=== PATIENT | female | born 1940 | race African-American/Black ===

== ENCOUNTER 2018-12-11 21:39 | Inpatient (IN) | payer OTHER ==
[~2018-12-11] VITALS: Ht 162.6 cm; Wt 106.1 kg
--- NOTE | ~2018-12-11 | D ---
[facility] [place] [address] DISCHARGE SUMMARY Name: MAXIM CONRAD Room #: 520B-B DIS IN M.R.#: [id number] Admission: 12/11/18 ������������������ Attend Phys: Ahsan Yang DO Discharge: 12/21/18 ������������������ Date of : 42 Report #: [id number] THIS REPORT FOR: //name// CC: Ahsan Yang Bozena Brittonflorencio DATE OF SERVICE: 12/21/2018 INPATIENT PSYCHIATRIC DISCHARGE SUMMARY ATTENDING PHYSICIAN: Ahsan Yang DO CRISIS INTERVENTION SPECIALIST AT THE TIME OF DISCHARGE: Chuck Uribe MD DISCHARGE DIAGNOSES: Major neurocognitive disorder, most likely due to Alzheimer's disease with behavioral disturbance, improved. Comorbidities include hypertension, chronic obstructive pulmonary disease, chronic respiratory failure. The patient will continue a prednisone taper. Morbid obesity, BMI of 40, obstructive sleep apnea, chronic lower extremity lymphedema, rheumatoid arthritis, on Plaquenil; history of restless legs syndrome with Requip stopped due to psychosis, paroxysmal atrial fibrillation, hyperlipidemia. LABORATORY DATA: This admission, hematology, H and H 10.3 and 32.8, white count 9.6, platelets 277. Blood gas done on 12/17/2018 was aberrant due to her being off supplemental oxygen, but she was not in increased failure. Accu-Cheks were done. Valproic acid level was 46 on 12/17/2018 and her dose was raised. Urinalysis done on 12/13/2018 and 12/17/2018 was negative. DISCHARGE MEDICATIONS: Include Seroquel 50 mg daily at 9:00 a.m., Seroquel 125 mg p.o. at 1:00 p.m., Seroquel 150 mg p.o. at bedtime for mood stabilization and psychosis, polyethylene glycol 17 g p.o. daily dissolved for constipation, prednisone currently on a taper 10 mg tablet. The patient should get 10 mg for 2 more days and then 5 mg for 2 more days and stop Lantus 32 units subQ at bedtime, aspirin 81 mg daily for cardioprotection, atorvastatin 40 mg p.o. at bedtime for hyperlipidemia, Pulmicort 0.25 mg inhaled twice a day for COPD, Depakote 500 mg p.o. b.i.d., hydroxychloroquine 400 mg p.o. daily, albuterol 3 mL inhaled q. 4 hours as needed for shortness of breath, loratadine 10 mg p.o. daily, magnesium oxide 400 mg p.o. b.i.d., Lopressor 25 mg p.o. b.i.d. for rate control, Singulair 10 mg p.o. daily for COPD, multivitamin p.o. daily for supplementation, nystatin applied to pannus and rash behind breasts for 2 more weeks and then reevaluate, pantoprazole 40 mg p.o. daily for GERD. She will need primary care and psychiatric followup at the [facility]. [address] [address] DISCHARGE SUMMARY Name: MAXIM CONRAD Room #: 520B-B DIS IN M.R.#: [id number] Admission: 12/11/18 ������������������ Attend Phys: Ahsan Yang DO Discharge: 12/21/18 ������������������ Date of : 42 Report #: [id number] REASON FOR ADMISSION: Is as follows: The patient has become increasingly agitated, accusing her of cheating in a nursing facility, she has been there about 6 months, aggressive. HOSPITAL COURSE: The patient was admitted to the Geriatric Psychiatry Unit. Her Depakote was at a subtherapeutic dose and was increased to 500 mg twice a day with a blood level of around 46. Seroquel was titrated to 50 mg in the morning, 125 in the afternoon and 150 at night. The patient initially required 1:1 while awake, this was discontinued roughly Monday this past week, was at 1:1 while awake. The patient earlier in the stay, would take her oxygen off and difficult to redirect. There were several intramuscular injections given; however, for the last 3 days or so, we had good behavioral control. At the day of discharge, the patient was not suicidal or homicidal, ready for discharge back to nursing facility. PHYSICAL EXAMINATION: VITAL SIGNS: Temperature is 36.3, pulse 75, respirations 14, BP 86/49, O2 sat 99% by nasal cannula, essentially nonambulatory, using a wheelchair. MENTAL STATUS EXAMINATION: This is a well-developed, well-nourished, obese black female, appearing nearly stated age. Attention limited. Concentration limited. Speech, normal rate. Thought process linear and goal oriented. Thought content, focused on discharge. No psychomotor agitation. No psychomotor retardation. No auditory, visual or tactile hallucinations. Denies suicidal intent or plan. Denied hopelessness or helplessness. Denied homicidal intent or plan. Mood and affect were happy, congruent, euthymic, particularly about discharge. Insight limited. Judgment limited. Fund of knowledge below average. Prognosis for this patient is guarded to poor given dementia, oxygen requirements, advancing age and poor conditioning. ��������������������������������������������� ���������������������������������������� By: ��������������������������������������������� [id number] Ahsan Yang, DO /nt
[2018-12-11 21:48] VITALS: BP 124/102
[2018-12-11] MEDS ORDERED: APAP650 PO (21:59)
[2018-12-11] MEDS ORDERED: AMITRIPTYLINE H25 M2 PO (22:00)
[2018-12-11] MEDS ORDERED: DEPAKOTE500 MG PO (22:01)
[2018-12-11] MEDS ORDERED: ASPIRIN81 M2 PO (22:01)
[2018-12-11] MEDS ORDERED: PULMICORT0.25 MG/3 INH (22:01)
[2018-12-11] MEDS ORDERED: ATORVASTATIN CA40 MG PO (22:01)
[2018-12-11] MEDS ORDERED: CARDIZEM CD240 MG PO (22:02)
[2018-12-11] MEDS ORDERED: HYDROCHLOROTHIA25 M2 PO (22:02)
[2018-12-11] MEDS ORDERED: IPRAT-ALBUT 0.5-3 ML INH (22:03)
[2018-12-11] MEDS ORDERED: PLAQUENIL200 MG PO (22:03)
[2018-12-11] MEDS ORDERED: CLARITIN10 MG PO (22:04)
[2018-12-11] MEDS ORDERED: LOPRESSOR25 PO (22:04)
[2018-12-11] MEDS ORDERED: MAGOX 400400 MG PO (22:04)
[2018-12-11] MEDS ORDERED: SINGULAIR 10 MG10 M1 PO (22:05)
[2018-12-11] MEDS ORDERED: NOVOLOG100 UNIT/1 SUBQ (22:05)
[2018-12-11] MEDS ORDERED: CENTRUM SILVER1 EAC4 PO (22:05)
[2018-12-11] MEDS ORDERED: NYAMYC15 GM TOP (22:06)
[2018-12-11] MEDS ORDERED: PROTONIX40 M1 PO (22:06)
[2018-12-11] MEDS ORDERED: REQUIP 0.25 M0.25 M1 PO (22:07)
[2018-12-11] MEDS ORDERED: TRESIBA FL200 UNIT/1 SUBQ (22:07)
[2018-12-11] MEDS ORDERED: SEROQUEL 50 MG50 MG PO (22:07)
[2018-12-11 23:36] VITALS: BP 130/83
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
--- NOTE | 2018-12-12 01:39 | NUR ---
Pt takes Tresiba at hs. Our pharmacy does not carry this medication. Will have day charge notify Dr in am of need to change medication to lantus and pt will need a dose.
--- NOTE | 2018-12-12 01:51 | NUR ---
Notified Deirdre DANIELS of admission and that pharmacy does not carry Trebsia insulin, that it would need to be changed to Lantus. YOUTH MINISTER agreed that day charge can notify DR in am and of need for dose.
--- NOTE | 2018-12-12 02:08 | NUR ---
Pt awakened noted to have gutteral breathing noises, using accessory muscles with breathing. O2 remains on. Pt wanting to remain in upright position. RT called for breathing treatment.
--- NOTE | 2018-12-12 02:12 | NUR ---
RT stated pt needs prn order, candy wrapping machine operator called for order prn nebulizer.
--- NOTE | 2018-12-12 02:13 | NUR ---
Lung sounds expiratory wheeze anterior and posterior, RT notified.
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
--- NOTE | 2018-12-12 04:25 | NUR ---
Pt restless in bed prefers to lay on right side or sit upright, pt c/o legs itching and lotion applied. Pt had HOB raised to 90 with pillows supporting her back and she relaxed to rest. O2 remained continuous and no increase in wheezing or use of accessory muscles noted.
--- NOTE | 2018-12-12 05:10 | NUR ---
Pt became restless in bed, sitting on edge of bed. Pt assisted to w/c and o2 per tank, Pt now sitting upright but sleeping in chair in day room. Compliant with cares and transfer. No mention of hallucinations.
[2018-12-12 15:53] VITALS: BP 109/55
[2018-12-12 18:01] VITALS: BP 109/55
--- NOTE | 2018-12-12 18:43 | NUR ---
ASSUMED PATIENT CARE AT 0700. PATIENT WAS COMPLIANT WITH NURSING CARE THROUGHOUT THE DAY. HOWEVER, PATIENT BECAME COMBATIVE AT ABOUT 1600, WHEN NURSE ATTEMPTED TO REMOVE HOSPITAL OXYGEN TANK FROM PATIENT, WHICH SHE HAD MOVED FROM BEHIND TO HER TO IN FRONT OF HER. PATIENT INSISTED THAT IT WAS HERS, REFUSED TO ALLOW NURSE TO REMOVE FROM HER FRUIT FARMWORKER. NURSE WAS ABLE TO DISCONNEDT O2 TUBING FROM TANK, IN AN EFFORT TO MOVE THE TANK. HOWEVER, PATIENT BECAME VERY ANGRY, NECESSARY FOR ASSIST TIMES 3-4 TO GET PATIENT SAT DOWN IN CHAIR.
[2018-12-12 20:23] VITALS: BP 115/65
--- NOTE | 2018-12-12 20:39 | NUR ---
ASSUMED CARE @ 19:15. IN ROOM, WITH OXYGEN ON @ 3L. SHOUTING AND SAYING SHE WANTS TO GO HOME.
--- NOTE | 2018-12-12 22:16 | NUR ---
TAKES OXYGEN OF AND WALKS OUT OF HER ROOM FREQUENTLY. SATS DROP TO 84% WHEN OFF OXYGEN. COOPERATED WITH RESPIRATORY THERAPY, AND RECIEVED RESPIRATORY TX. TOOK 2100 MEDS WHOLE WITH WATER. C/O WANTING TO GO HOME. EXPLAINATION PROVIDED THAT SHE HAS A BED FOR TONIGHT AND CAN TALK TO THE DOCTOR ABOUT THAT TOMORROW. SEEMED TO ACCEPT INPATIENT STATUS. WILL CONTINUE TO MONITOR.
[2018-12-12 22:22] VITALS: BP 115/65
--- NOTE | 2018-12-13 02:47 | NUR ---
AWAKENED IN THE NOC AND SAT UP ON SIDE OF BED. BEGAN FALLING ASLEEP WHILE SITTING AND TRIED TO HELP HER LIE DOWN. SHE RESISTED THE HELP, AND SOON LAID HERSELF BACK DOWN. WILL CONTINUE TO MONITOR.
--- NOTE | 2018-12-13 06:38 | NUR ---
AWAKENED WITH PAIN IN HER BACK. PROVIDED PRN ARTHRITIS TYLENOL. 0600 AND 0700 MEDS PROVIDED. STILL NEED TO COLLECT URINE FOR UA.
[2018-12-13 07:20] VITALS: BP 106/58
[2018-12-13 07:29] LABS: URINE BILIRUBIN NEGATIVE (Negative); URINE BLOOD NEGATIVE (Negative); URINE CLARITY CLEAR; URINE COLOR YELLOW; URINE GLUCOSE-RANDOM* NEGATIVE (Negative); URINE KETONES NEGATIVE (Negative); URINE LEUKOCYTES-REFLEX NEGATIVE (Negative); URINE NITRITE-REFLEX NEGATIVE (Negative); URINE PROTEIN (DIPSTICK) NEGATIVE (Negative); URINE SPECIFIC GRAVITY 1.015 (1.005-1.035)
--- NOTE | 2018-12-13 09:28 | EKG ---
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1940 Requested By: Charan Bowens Order Number: [id number] MD: Abelardo Lamar Measurements Intervals [place] Rate: 94 P: 246 [place]: 177 QRS: 9 QRSD: 91 T: 52 QT: 376 QTc: 471 Interpretive Statements Sinus rhythm with first-degree AV block No previous ECG available for comparison Electronically Signed On 12-13-2018 9:28:28 CDT by Abelardo Lamar [email or web address] ��������������������������������������������� <ELECTRONICALLY SIGNED> ���������������������������������������� By: Abelardo Lamar MD, [facility] ��������������������������������������������� 12/13/18 0928 D: [id number] Abelardo Lamar MD, FACC /EPI
[2018-12-13 11:06] VITALS: BP 106/58
--- NOTE | 2018-12-13 12:57 | NUR ---
PATIENT IS UP AND OUT ON THE UNIT, SHE IS FORGETFUL, CONFUSED AT TIMES, CAN CARRY OUT COHERENT CONVERSATION INTERMITTENTLY. PATIENT CONTINUE TO HAVE VISUAL HALLUCINATION. STATES TO THIS RN, "I SEE THINGS FLYING ON MY FOOD DO YOU SEE THEM?". THIS NURSE ASSURED PATIENT THAT NOTHING IS FLYING ON HER FOOD, " OH AM SEEING THINGS AGAIN". PATIENT WAS REASSURED, AND TOLD TO LET STAFF KNOW ABOUT WHATEVERY SHE IS SEEING. PATIENT TOOK ALL HER MEDICATION WHOLE WITHOUT DIFFICULTY. PATIENT ATTEMPTS TO TAKE 02 TUBING OFF. SHE PRESENTS WITH RESTLESS BEHAVIOR INTERMITTENTLY. STAFF ENCOURAGING AND MONITORING PATIENT TO KEEP [address] TO AVOID 02 FROM DROPPING. PATIENT DENIES SUICIDAL/HOMOCIDAL IDEATION. SHE DENIES BEING DEPRESSED "I JUST WANT TO GO HOME AND SEE MY KIDS, WE HAVEN'T BEEN SEPERATED SINCE THEY WERE BORN". PATIENT CURRENTLY SITTING IN DAY ROOM WATCHING TV, WILL MONITOR FOR SAFETY.
--- NOTE | 2018-12-13 14:34 | NUR ---
VICTORINA spoke with pt's spouse Hill Coats [phone]. He wishes to be part of the d/c planning. Pt lives in the [facility] in [place] for only 1 week. Pt has her own O2 and wheelchair. he will bring these back for her when he picks her up at d/c. He is working a lot and unable to be present for the family meeting but is able to provide inforamtion and possibly contribute via phone if necessary.
[2018-12-13 20:44] VITALS: BP 108/60
--- NOTE | 2018-12-13 21:37 | H ---
[facility] [place] [address] HISTORY AND PHYSICAL Name: MAXIM OCNRAD Room #: 520B-B ADM IN M.R.#: [id number] Admission: 12/11/18 ������������������ Attend Phys: Ahsan Yang DO Discharge: ������������������ Date of : 42 Report #: [id number] THIS REPORT FOR: //name// CC: Ahsan Yang Bozena Tejada DATE OF SERVICE: 12/12/2018 ATTENDING PHYSICIAN: Ahsan Yang DO MANAGER DELI: Nils Samayoa MD REASON FOR ADMISSION: As follows: Yelling, hitting at , refusal of care, is not willing to stay at facility. HISTORY OF PRESENT ILLNESS: A 78-year-old obese black female presented to the ED with complaints of shortness of air, reports ongoing and chronic, she normally wears oxygen. The patient was at a SNF facility with auditory and visual hallucinations. This was [place] in the [facility]. This has been going on about 3 weeks for pneumonia and medication change. The patient progressively increased agitation and violence. Had CT and blood work this a.m. The patient stated in the ER "my does not want me drinking, but I have been drinking for 20 some years." She denied alcohol use. She reports SI for about 2 weeks, stated "I have nothing to live for." She reports trying to harm herself in the past. She also confirms having thoughts of harming someone else, stating yes "my is the one." This woman's name is Camille and the patient denies ever trying to harm Camille in the past. The patient had previously lived at home with her children and brother in [place], [place]. Today, I spoke to her son, Albert, who reported she had been placed in a nursing facility for 4-5 months. She has accused her of cheating. She is on her fourth marriage. Respiratory symptoms are chronic and according to the son, she has not been diagnosed with dementia, but the ER, noted an Alzheimer's diagnosis. PAST MEDICAL HISTORY: Bronchitis, chest pain, COPD, diabetes mellitus, dizziness, fibromyalgia, history of GI bleed, hypercholesterolemia, hypertension, hyperglycemia, hypomagnesemia, lung disease, malignant neoplasm of the bronchus and lung, obesity, obstructive sleep apnea, pleurisy, history of pneumonia, history of respiratory failure, history of sepsis, shortness of breath, weakness, cervical disk removal. PAST SURGICAL HISTORY: Cholecystectomy, hysterectomy, lobectomy of lung. MEDICATIONS: At nursing facility are as follows: Acetaminophen 650 mg p.o. q. 4 hours p.r.n. for general discomfort; amitriptyline 50 mg p.o. by mouth at bedtime for depression; aspirin 81 mg p.o. daily for cardioprotection; atorvastatin 40 mg p.o. at bedtime for hyperlipidemia; ____ suspension 0.[address] [address] HISTORY AND PHYSICAL Name: MAXIM CONRAD Room #: 520B-B ADM IN M.R.#: [id number] Admission: 12/11/18 ������������������ Attend Phys: Ahsan Yang DO Discharge: ������������������ Date of : 42 Report #: [id number] per 2 mL 1 vial inhale orally twice daily for COPD; Depakote 500 mg by mouth 2 times per day for behaviors; diltiazem hydrochloride 120 mg 2 tablets by mouth in the morning for hypertension, hold if systolic BP less than 100 or pulse is less than 50; hydrochlorothiazide 25 mg oral daily; hydroxychloroquine 200 mg by mouth one time a day for arthritis; albuterol with ipratropium bromide nebulizer 0.5 mg inhaled every 4 hours for COPD; loratadine 10 mg p.o. daily for allergies; magnesium oxide 1 tablet by mouth 2 times a day for supplementation; metoprolol tartrate 25 mg by mouth 2 times a day for hypertension. DEVELOPMENTAL HISTORY: She only has a 6th grade level of education. She has numerous children, 4 marriages at least. Unclear exactly her occupational history at this time. Information from the ER in [place] showed a CT of the head without contrast. There was no mass effect, midline shift, extra-axial fluid collection, hemorrhage or obvious acute infarction. Basilar cisterns are present. No acute intracranial abnormality. LABORATORY DATA: From [place]: PTT 29.2, PT 12.6, INR 1.2. CBC: White count 12.2, H and H 9.6 and 32.4, platelet count 295. CMP: Glucose 116, BUN 13, creatinine 0.7, sodium 140, potassium 3.6, chloride 99, bicarbonate 34, SGOT 23, SGPT 25, alkaline phosphatase 120, albumin 3.6, calcium 9.8, estimated GFR greater than 60, magnesium 1.7. Troponin less than 0.012. TSH 2.98. Dilantin level less than 3. Vitamin B12 645, folate greater than 20. I am not sure why the Dilantin level was tested for. PHYSICAL EXAMINATION: VITAL SIGNS AT TIME OF EVALUATION: Temperature is 36.8, pulse rate 95, respirations 18, BP 109/55, O2 sat 92% on room air. MUSCULOSKELETAL: Largely wheelchair bound, on oxygen at 3 liters. MENTAL STATUS: This is a well-developed, obese black female appeared at least stated age. Attention limited. Concentration limited. Speech loud, normal rate. Thought process linear, focused to her present environment. Psychomotor agitation at times. No psychomotor retardation. Denied auditory, visual or tactile hallucination. Denied suicidal intent or plan. Denied hopelessness or helplessness. Denied homicidal intent or plan. Oriented to person, grossly situation not fully to time. Insight limited. Judgment limited. Fund of knowledge below average. FORMULATION: A 78-year-old obese black female admitted for a variety of impulsive behavior as well as hallucinations. PLAN: Evaluate, stabilize, obtain collateral. I spoke with the son, Albert regarding her medications. Since her Depakote level was subtherapeutic, we will keep that at 500 mg twice a day. Regarding psychosis, I think we will try and work with the Seroquel a bit since she is on that and make her through the day [address] [address] HISTORY AND PHYSICAL Name: MAXIM CONRAD Room #: 520B-B ADM IN M.R.#: [id number] Admission: 12/11/18 ������������������ Attend Phys: Ahsan Yang DO Discharge: ������������������ Date of : 42 Report #: [id number] regimen of 25 in the morning and 50 in the afternoon, 75 in the evening. Given her COPD, we will make this a gradual increase. I would like to set up a family meeting for later in the week or early next week. STRENGTHS: She has insured. WEAKNESSES: Advancing age, morbid obesity with a BMI of 40.2. Time spent on interview, review of records, coordination of care, as well as assisting nurses in management of her agitation and need for removal from the group area was at least 90 minutes. ��������������������������������������������� <ELECTRONICALLY SIGNED> ���������������������������������������� By: Ahsan Yang DO ��������������������������������������������� 12/13/182136 47 17 Ahsan Yang DO /nt
--- NOTE | 2018-12-13 23:32 | NUR ---
PT PLEASANT AT START OF EVENING. O2 AT 2L PER NASAL CANNULA. TOOK HS MEDS AND INSULIN ORDERED. ESCORTED TO BED AT 2130. BECAME INCREASINGLY RESTLESS AND CONFUSED. AUDITORY HALLUCINATIONS, BELIEVING MALE STAFF WAS SON CONG. GOT CONG ON PHONE AND SHE REFUSED TO BELIEVE IT WAS HIM. SAT UP IN DAYROOM FOR 30 MINUTES ON O2, THEN DECIDED SHE WAS NOW READY FOR BED. TUCKED IN WITH O2 AT 2L. CURRENTLY SLEEPING.
[2018-12-14 01:18] VITALS: BP 108/60
[2018-12-14 01:21] VITALS: BP 108/60
--- NOTE | 2018-12-14 04:47 | NUR ---
PT CONTINUED TO BE RESTLESS. PT UP IN DAY AREA AT 0230 FOR ABOUT AN HOUR. RETURNED TO BED. SLEPT UNTIL 0415. UP TO BSC. VOIDED APPROX 800 ML. RETURNED TO BED. CURRENTLY RESTING COMFORTABLY. CHECKED O2 SAT DURING RESTLESS PERIOD. SAT 96-98%.
[2018-12-14 07:15] VITALS: BP 88/44
--- NOTE | 2018-12-14 08:38 | NUR ---
Assess due to pt with class III extreme obesity with BMI of 40.2. Admit to [facility] with hallucinations. Hx dementia, copd, dm. Eating 75-100% of a carb controlled diet. BG are elevated 162-282, requires HS insulin but may also need sliding scale coverage. ST has assessed and placed on mechanical altered diet due to retained food, and episode of choking. Otherwise low nutrition risk, attempt for improved BG control.
[2018-12-14 10:26] LABS: HEMATOCRIT 32.8 % (37.0-47.0); HEMOGLOBIN 10.3 gm/dL (12.0-15.0); MCH 25.5 pg (26.0-34.0); MCHC 31.3 g/dL (28.0-37.0); MCV 81.6 fL (80.0-100.0); RBC 4.02 mil/uL (4.20-5.00); RDW 16.5 % (10.5-14.5); WBC 8.6 thou/uL (4.0-11.0)
[2018-12-14 10:37] LABS: CALCIUM 9.6 mg/dL (8.5-10.1); CREATININE 0.7 mg/dL (0.6-1.0); MAGNESIUM 1.6 mg/dL (1.8-2.4); POTASSIUM 3.6 mmol/L (3.5-5.1); TOTAL BILIRUBIN 0.3 mg/dL (<0.1-1.0); TOTAL PROTEIN 7.2 g/dL (6.4-8.2)
--- NOTE | 2018-12-14 15:05 | NUR ---
RESTLESS AND CONFUSED APPEARS TO BE HAVING AUDITORY AND VISUAL HALLUCINATIONS. APPEARS TO BE EATING WITH UTENSILS BUT NO FOOD OR UTENSILS THERE. POOR APPETITE. ANGRY WHEN TRY TO FEED HER. UP TO DINNING ROOM AND GROUPS. FALLS ASLEEP IN W/C. VOIDS IN TOILET WEARS BRIEF FOR ASSURANCE. TOOK MEDICATIONS WITHOUT DIFFICULTY.
--- NOTE | 2018-12-14 15:54 | NUR ---
SW completed SLUMS. PT scored a 3/30. Pt will be Major Neurocongitive disorder.
--- NOTE | 2018-12-14 23:11 | NUR ---
ASSUMED CARE @ 19:15. SITTING IN W/C IN DAY ROOM WITH OXYGEN ON @ 3L NC. REFUSED VS HRRR LUNGS SOUNDS DIMINISHED, ABD NORMAL BS. REPORTS LARGE BM YESTERDAY. TOOK HER 2100 MEDS COOPERATIVELY. X2 ASSIST TO TRANSFER TO BED. WILL CONTINUE TO MONITOR.
[2018-12-14 23:39] VITALS: BP 108/60
--- NOTE | 2018-12-15 03:14 | NUR ---
AWAKENS PERIODICALLY AND SITS UP THEN ALLOWS US TO LAY HER DOWN AND RAISE THE HEAD OF HER BED. RESPIRATORY THERAPY PROVIDED BTX. WILL CONTINUE TO MONITOR.
[2018-12-15 07:30] VITALS: BP 101/57
--- NOTE | 2018-12-15 07:45 | NUR ---
PT URINATED ON BED. PT GETTING DRESSED WITH ASSIST WITH SENIOR ARCHITECT/DESIGN MANAGER, PT ABLE TO STAND AND WALK. PT POLISH SPEAKING ONLY. PT DENIES ANY PAIN, DOES HAVE ORDER OF LIDOCAINE PATCH FOR BACK. PT HAS 1:1 FOR BEHAVIOR ISSUES AND TO PREVENT FALLS.
--- NOTE | 2018-12-15 09:30 | NUR ---
PT UP IN DINNING ROOM. PT HAS OXYGEN ON 3L NC. PT VOICE IS HARD TO UNDERSTAND AT TIMES DUE TO MUMBLING. PT STATED SHE HAS BEEN WEARING OXYGEN FOR 9 YEARS NOW. PT LUNGS CLEAR. NO SIGNS OF EDEMA.
--- NOTE | 2018-12-15 11:30 | NUR ---
FAMILY HERE TO SEE PT. PT WANTING TO GET UP OUT OF W/C WHEN FAMILY WAS LEAVING. PT EASY TO REDIRECT.
--- NOTE | 2018-12-15 13:30 | NUR ---
PT WAS WANTING TO KNOW ABOUT HER CELL PHONE AND PURSES. CALLED AND TALKED TO SON, PARVIN ON THE PHONE. SON STATED THAT HER MOM SPEECH IS HARD TO UNDERSTAND. WANTING TO KNOW ABOUT HER MEDICATIONS. WILL ADVISE OF SON CONSCERNS.
--- NOTE | 2018-12-15 14:00 | NUR ---
SITTING NEXT TO PT, SHE IS PUTTING SOMETHING ON MY COMPUTER TRAY. ASKED HER WHAT SHE IS PUTTING ON TRY, STATED THAT IT WAS HER EARINGS. NO EARINGS SEEN.
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
--- NOTE | 2018-12-15 17:30 | NUR ---
LAYED PT DOWN FOR NAP, SEEMS SLEEPY WITH EYES CLOSED IN W/C. GOT TO TALK TO ON PHONE AROUND 16:30, THEN OUT TO DINNING ROOM. PT DIDN'T WANT TO EAT DINNER.
--- NOTE | 2018-12-16 00:22 | NUR ---
ASSUMED CARE @ 19:15. IN W.C. WITH OXYGEN ON VIA N/C @ 3 L IN DAY ROOM. TOOK 2100 MEDS AND TRANSFERRED TO THE BED X2 ASSIST. BTX PROVIDED @ 20:30. AWAKENED AT 00:30, COMBATITIVE WITH STAFF, WRAPPING OXYGEN CORD AROUND HAND.
--- NOTE | 2018-12-16 01:27 | NUR ---
NEW OXYGEN TUBING HOOKED UP AND N/C PUT ON PATIENTS NOSE. OXYGEN SATS INCREASED TO 93%, ORDER FOR IM HALPERODOL 2.5MG AND 25MG BENEDRIL PROVIDED. PT ALLOWED HERSELF TO TRANSFER TO THE BED X2 ASSIST. GOT AN L SHAPED SCRATCH ON THE RIGHT ANKLE FROM KICKING THE BED DURING PSYCHOTIC RAGE. WILL CONTINUE TO MONITOR.
--- NOTE | 2018-12-16 04:47 | NUR ---
GOT OUT OF BED AND AMBULATED X1 ASSIST TO THE DAY ROOM. RETURNED TO HER ROOM X1 ASSIST, TOILETED AND AMBULATED X1 TO THE DAY ROOM. PUT OXYGEN ON AND HER SPO2 SATS CAME UP TO 93%. WILL CONTINUE TO MONITOR.
[2018-12-16 04:52] VITALS: BP 101/57
--- NOTE | 2018-12-16 06:18 | NUR ---
slept 3 hours
--- NOTE | 2018-12-16 09:02 | NUR ---
0730: Report from noc shift, care assumed. To for a.m. meal via w/c, self propels occasionally, feeds self-appetite good, takes meds whole w/o difficulty. O2 on @ 3L, O2SAT 96%, lung fileds dim bilat. continues with SVN tx as ordered, no cough noted. Chair alarm in place, pt requires frequent reminders to no impulsively attempt to stand up from w/c, accepts redirection well. Fall precautions in place.
[2018-12-16 10:14] VITALS: BP 115/62
[2018-12-16 19:30] VITALS: BP 116/66
--- NOTE | 2018-12-16 21:39 | NUR ---
PT IN ROOM SITTING ON EDGE OF BED ON 1:1 OBSERVATION. ACTIVELY HALLUCINATING. BELIEVES HER SON IS HERE,"I CAN HEAR HIM". NEEDED ENCOURAGEMENT AND PATIENCE, BUT PT TOOK PO MEDS AT PRESCRIBED. REMAINS SITTING ON BED BUT REDIRECTABLE AND SOMEWHAT QUIETER. SMILES PERIODICALLY, BUT CONFUSED.
[2018-12-16 23:54] VITALS: BP 116/66
--- NOTE | 2018-12-17 03:28 | NUR ---
PT SLEPT PERIODICALLY. SAT UP AND RESPIRATIONS WERE COARSE. RT UP TO ADMINISTER TREATMENT. PT COOPERATIVE. ABOUT 0330, PT DECIDED SHE DID NOT WANT TO KEEP O2 ON. ATTEMPTED TO CONVINCE HER THE O2 WAS MEDICINE AND NECESSARY FOR HER WELL BEING. SHE WAS HAVING NONE OF THAT. REFUSING AT THIS TO COMPLY. CONTINUES TO SIT ON EDGE OF BED ON 1:1 OBSERVATION.
[2018-12-17 09:36] VITALS: BP 124/73
--- NOTE | 2018-12-17 09:44 | NUR ---
2926-1834: Report from [facility] shift, care assumed. Sleeping in w/c in DR, resp. shallow/even, O2 on @ 3L/NC, lung ruiz diminished to bilat. upper and lower lobes, O2SAT on O2 92%, skin w/d, awakens with sternal rub, agitated when awake, uncooperative with staff, refused a.m. meal and 0900 meds, B/P=124/73, HR 92. Pt stated she needed to use bathroom but declines staff assist, impulsive movements and ideations, slaps at staff with open hand, pt physically removed from DR via w/c, taken to room and assisted to bed accomp by 4 staff due to pt resistance, refused to cooperate with staff, trying to get out of bed w/o assist. Dr. Yang present, update given, new orders rec. 0930: Geodon 10mg IM given Lt upper buttock, assisted by 2 staff. 0950: Stat lab draw completed. Pt resting supine in bed w/o distress, 1:1 sitter present.
[2018-12-17 11:48] LABS: BE(vivo) 10.2 mmol/L (-2 to +3); HCO3 34.9 mmol/L (22.0-26.0); PCO2 47.6 mmHg (35.0-45.0); pH 7.483 (7.360-7.450)
[2018-12-17 11:50] LABS: PO2 45.3 mmHg (80.0-100.0)
--- NOTE | 2018-12-17 14:07 | EKG ---
[place] [address] [facility] [employer] [address] ELECTROCARDIOGRAM REPORT Name: MAXIM CONRAD Room #: [facility] ADM IN M.R.#: [id number] ������������������ Admission: 12/11/18 ������������������ Attend Phys: Ahsan Yang DO Discharge: ������������������ Date of : 42 Report #: [id number] ����������������������������������������������������������������� [id number] THIS REPORT FOR: //name// [facility] Test Date: 2018-12-17 Test Time: 11:30:50 Pat Name: MAXIM CONRAD Department: Room: [facility] Gender: F 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: Vinnie WISE : 1940 Requested By: Chuck Uribe Order Number: [id number] MD: Davin Argueta Measurements Intervals [place] Rate: 101 P: -31 MN: 215 QRS: 10 QRSD: 93 T: 89 QT: 355 QTc: 461 Interpretive Statements Sinus tachycardia Prolonged MN interval Borderline T wave abnormalities Compared to ECG 12/11/2018 21:56:32 First degree AV block now present T-wave abnormality now present Sinus rhythm no longer present Electronically Signed On 12-17-2018 14:07:14 CDT by Davin Argueta [email or web address] ��������������������������������������������� <ELECTRONICALLY SIGNED> ���������������������������������������� By: Davin Argueta MD ��������������������������������������������� 12/17/18 1407 1130 1130 Davin Argueta MD /EPI
--- NOTE | 2018-12-17 17:33 | NUR ---
1730: Clean catch UA specimen collected and taken to lab.
[2018-12-17 18:16] LABS: URINE BILIRUBIN NEGATIVE (Negative); URINE BLOOD NEGATIVE (Negative); URINE CLARITY CLEAR; URINE COLOR YELLOW; URINE GLUCOSE-RANDOM* NEGATIVE (Negative); URINE KETONES NEGATIVE (Negative); URINE LEUKOCYTES-REFLEX NEGATIVE (Negative); URINE NITRITE-REFLEX NEGATIVE (Negative); URINE PROTEIN (DIPSTICK) NEGATIVE (Negative)
[2018-12-17 19:31] VITALS: BP 119/70
--- NOTE | 2018-12-18 03:28 | NUR ---
ASSUMED CARE FROM DAY SHIFT PT SITTING UP IN WHEELCHAIR WITH 1:1 SITTER AT SIDE PT CALM COOPERATIVE ALERT ORIENTED X4 TOOK PO MEDICATION WITH DIFF. ASSISSTED TO BED AFTER BATHRROM BREAK, SLEEPING WELL THROUGHOUT ROUNDING. WILL CONINTUE WITH CURRENT PLAN OF CARE.
[2018-12-18 07:10] VITALS: BP 124/77
[2018-12-18 10:53] VITALS: BP 124/77
--- NOTE | 2018-12-18 11:14 | NUR ---
ASSUMED CARE AT 0715 THIS MORNING. PT. IN BED, GOTTEN UP FOR VS AND BREAKFAST. COMPLIANT WITH A.M. MEDICATIONS AND A.M. GROUP. IN ROOM WITH 1:1 SHE DECIDED TO BE OBSTINATE AND REFUSED TO SIT DOWN, STANDING IN THE CORNER BY HER BED. STAFF CLOSE INCASE OF PROBLEMS, GAIT BELT ON PT. PT. SOON TIRED OF STANDING AND SAT IN HER W/C. RT HERE FOR TREATMENTS. HAD 2 VISITORS AT 1045 THIS MORNING. REFUSED BATH OR SHOWER.
--- NOTE | 2018-12-18 13:14 | NUR ---
Recreational Therapy Weekly Progress Note Date of Admission: 12/11/18 Date of Activity Therapy Assessment: 12/14/18 Activity Goal: 1 group per day. Initial Goal: Patient will participate in 1 recreational therapy group per day until discharge. Weekly progress towards goal: Did not achieve goals Group participation level: Needs some assistance Behaviors observed: Patient's participation in groups has been inconsistent. Pt shows signs of hallucinating during group as evidence by picking up unseen objects of floor, reaching for the air, and passing these objects to other pts. Pt is blunt and verbally aggressive at times and drowsy during others. Plan: No change towards goal
[2018-12-18 20:46] VITALS: BP 123/69
--- NOTE | 2018-12-18 21:57 | NUR ---
ASSUMED CARE OF THE PT AT 1915PM. THE PT WAS IN THE DINNING ROOM IN HER WHEELCHAIR, SHE KEPT PULLING HER OXYGEN TUBING FROM THE WALL. DENIES PAIN AT THIS TIME. REMAINS ON 12 MINUTE CHECKS FOR HER SAFETY.
--- NOTE | 2018-12-18 22:42 | NUR ---
THE PT CAME OUT OF HER ROOM RUNNING DOWN THE HALLWAY NAKED WITHOUT HER OXYGEN. ASSISTED THE PT BACK TO BED WITH THE ASSISTANCE OF TWO PEOPLE. MEDICATED THE PT WITH LORAZEPAM 0.5MG PO. REMAINS ON 12 MINUTE CHECKS FOR THE PT'S SAFETY.
--- NOTE | 2018-12-19 02:26 | NUR ---
THE PT WAS SITTING ON THE SIDE OF THE BED, THEN SHE ABRUPTLY GOT UP TO WALK TO THE BATHROOM. ASSISTED HER BACK TO BED AFTER SHE VOIDED. CURRENTLY SHE IS SITTING ON THE SIDE OF THE BED WITH THE BED ALARM IN PLACE.
--- NOTE | 2018-12-19 03:55 | NUR ---
THE PT HAS BEEN UP AND DOWN FROM THE BED. THREATENING STAFF. WON'T LEAVE HER OXYGEN IN PLACE, WILL NOT GET BACK UP IN THE BED. CONTINUALLY GETTING UP AND WALKING AROUND THE ROOM, WITH AN UNSTEADY GAIT. YELLING AT STAFF, "YOU DON'T TOUCH ME!!!" CALLED THE CORK FLOOR INSTALLER WINDOWS ADMINISTRATOR, WHO ORDERED ZYPREXA 5 MG IM, WHICH WAS GIVEN ORDERED. STAFF IS SITTING WITH PT AT THIS TIME, SHE WILL NOT GO BACK TO BED.
--- NOTE | 2018-12-19 06:41 | NUR ---
THE PT SLEPT 5 HOURS LAST NIGHT.
[2018-12-19 07:52] VITALS: BP 110/68
--- NOTE | 2018-12-19 08:30 | NUR ---
PT OUT EATING BREAKFAST THIS AM. PT ORIENTED TO SELF ONLY. PT THOUGHT SHE WAS IN [facility] AND THAT IT WAS NOVEMBER. PT HAS RLL RHONCHI AND WHEEZE. LLL EXP RHONCHI. PT HAS OXYGEN ON 3L NC. PT SOA WITH EXERTION. PT IN W/C. PT CAN WALK WITH STAND-BY ASSISTANCE.
[2018-12-19 10:00] VITALS: BP 110/68
--- NOTE | 2018-12-19 11:58 | NUR ---
FAMILY CAME TO VISIT. PT HAD GOOD VIST WITH FAMILY.
--- NOTE | 2018-12-19 14:57 | NUR ---
VICTORINA spoke with Alison at [facility] concerning pt discharge. VICTORINA explained that pt tamara be discharge on december 21, 2018. VICTORINA explained that she recieved a phone call from pt daughter that she would not be accepted back to . VICTORINA explained that according [place] and [place] the state requires a 30 day notice.
--- NOTE | 2018-12-19 15:46 | NUR ---
PT FIGITING IN W/C. PT THOUGHT SHE DROPPED A BANANA, NO BANANA SEEN ON FLOOR.
--- NOTE | 2018-12-19 17:40 | NUR ---
PT RESTING IN CHAIR IN DINNING ROOM. PT AWOKE AND TRYING TO GET UP OUT OF CHAIR. PT HEARING ALARM IN CHAIR AND THOUGHT PARVIN WAS AT FRONT DOOR AND WANTED SOMEONE TO CHECK. WALKED WITH PATIENT DOWN CHAIREZ, DIDN'T SEE PARVIN. CALLED ON PHONE TO TALKE TO PARVIN, LEFT MESSAGE ON HIS PHONE.
[2018-12-19 19:10] VITALS: BP 127/70
--- NOTE | 2018-12-19 20:51 | NUR ---
Pt sitting in w/c in day room, restless sitting up and down, taking oxygen off and on. Pt picking at objects that only she can see. Pt talking to children that are not there. Pt discussing with staff about dogs barking and laughing that are not there. Pt compliant with medications, fsbs, and hs snack. Lungs remain diminished. Pts daughter called and talked with pt. Pt told her daughter that she planned on getting out of here tomorrow and would see her tomorrow at home, in a very pleasant and calm manner.
--- NOTE | 2018-12-20 02:43 | NUR ---
Pt awakened twice in the night, sat on the edge of her bed with eyes closed. When pt was asked if she needed to use the restroom, she did not answer clearly, her eyes remained closed and she was leaning backwards and caught by staff. Pt layed back down both times. Bed alarm remains on.
--- NOTE | 2018-12-20 07:11 | EKG ---
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: Marita WEIR : 1940 Requested By: Ahsan Yang Order Number: [id number] MD: Abelardo Lamar Measurements Intervals [place] Rate: 98 P: 37 [place]: 198 QRS: 4 QRSD: 91 T: 65 QT: 359 QTc: 459 Interpretive Statements Sinus rhythm No significant abnormality Compared to ECG 12/17/2018 11:30:50 Sinus tachycardia no longer present First degree AV block no longer present T-wave abnormality no longer present Electronically Signed On 12-20-2018 7:11:46 CDT by Abelardo Lamar [email or web address] ��������������������������������������������� <ELECTRONICALLY SIGNED> ���������������������������������������� By: Abelardo Lamar MD, [facility] ��������������������������������������������� 12/20/18 0711 1454 1454 Abelardo Lamar MD, [facility] /EPI
[2018-12-20 07:38] VITALS: BP 113/64
--- NOTE | 2018-12-20 12:13 | NUR ---
PATIENT SPENT MOST OF THEDAY IN DINING CHAIREZ. MED COMPLIANT. AND MAINTAINED OXYGEN - FOUND TO BE GRABBING AT UNSEEN OBJECTS ONTHE FLOOR. OBSERVED MUMBLING TO ONESELF IN DINING AREA AFTER LUNCH. HAD GOOD VISIT WITH FAMILY - DENIES S/I OR H/I - NO SWALLOWING ISSUES TODAY.
--- NOTE | 2018-12-20 14:35 | NUR ---
PATIENT DISCHARGED AT 1430 FROM OUR FACILITY. PATIENT PICKED UP BY [facility] - REVIEWED DOCUMENTATION WITH PATIENT AND UNDERSTOOD AND SIGNED ALL APPROPRIATE PAPERWORK. POSSESSIONS REVIEWED WITH FAMILY AND ALL READY AND TAKEN. VITALS STABLE UPON DISCHARGE.
[2018-12-20 19:49] VITALS: BP 112/64
--- NOTE | 2018-12-20 21:44 | NUR ---
Upon arrival to shift. Pt propeling self in wheel chair in cardenas attempting to leave yelling at staff, acussing staff of kicking her ankles. Pt stated she does not want to wait to go home in the am, she wants to go now. Pt assisted with 3 staff help to ambulate in cardenas to her room, pt did sit down. Used conversation to distract pt from yelling out while in her room. Pt remained calm for approximately 30 minutes, she was transferred back into her w/c and was in the dining room with peers. Pt was picking at table and yellling at staff to take the snakes out. Pt pinched air and gave to staff a snake to throw away. Approximately 15 minutes later pt was up and ambulating in day room, taking off her oxygen. She did sit in a different chair in day room, tank used to records section supervisor oxygen. Pt was yelling loudly for Broderick her son, sydney Dyson. Pt not able to be redirected regarding orientation or that her family was not present. She insisted she heard his voice. Pt provided ice cream as snack and asked to take medications. Pt refused medication but did allow insulin to be given. Pt reapproached regarding medication 2 times, pt continued to refuse, she did throw the spoon and ice cream in day room. Pt was grabbing oxygen tubing tightly around her hands and grabbing at tank. Staff had to assist to remove tubing and tank from pt. PRN IM provided. Pt was standing and losing her balance. Pt was then ambulated to her room, she was very soa but resistive to her oxygen per NC. Pt had another nc placed on her and connected to extension tubing, while she continued to hold original cannula. As oxygen level increased pt calmed and released old tubing which was removed from room. Pt connected to wall oxygen. Pt did agree to take a snack and was compliant with much encouragement of her hs depakote and seroquel. Pt remained in chair in doorway with o2 on for approximately 15minutes. She then ambulated herself to restroom. Pt was being assisted to her bed, pt sat in her bed and then started screaming for her son Broderick and started talking about snakes in her room. Pt remained resistive to walking with assistance or to sit in bed or sit in her w/c. Pt continues to yell out for son, she stated her throat is sore from her yelling, pt is able to be breifly redirected in conversation to stop her yelling. Pt remains restless from sitting in w/c to walking. She is pacing the halls and dayroom, she is also ambulating to the exit doors. Not following verbal redirection regarding yelling, or sitting to prevent falls. Dr Nolan paged regarding behaviors, no return call at this time.
--- NOTE | 2018-12-20 22:14 | NUR ---
Dr Tejada returned page and reviewed continued behaviors also reviewed prn zyprexa given by day shift 1800, prn IM given by travel information center supervisor as well as her hs depakote and seroquel. PRN x 1 Haldol/Benadryl order given.
--- NOTE | 2018-12-20 22:46 | NUR ---
Pt in room yelling for her son, yelling out for help , when staff approach she is kicking out toward staff and waving arms as if to slap. Pt does have o2 per nc on. Staff remaining at bedside using conversation for diversion, attempted prayer and singing. Pt continues to yell out loudly for help or son or to go home.
--- NOTE | 2018-12-20 23:23 | NUR ---
Staff remained in room pt remained sitting on the edge of the bed, compliant wtih o2. Pt was resting in upright position. Pt did awaken to say she was warm and that she felt high and was ready to lay down. Staff assisted pt to lay down and alarm remains on.
--- NOTE | 2018-12-21 03:11 | NUR ---
Pt has been resting in bed with nc intact.
--- NOTE | 2018-12-21 06:12 | NUR ---
Attempted to have pt take am meds and use restroom, pt remains tired and not able to open eyes or follow directions, protonix not given, remains in bed alarm on.
[2018-12-21 07:30] VITALS: BP 86/49
--- NOTE | 2018-12-21 08:00 | NUR ---
PT APPEARS TIRED THIS AM. HAD TO HELP WITH BREAKFAST TRAY. PT STATED SHE DIDN'T WANT TO SEE SNAKES TODAY. LUNGS CLEAR. DENIES ANY PAIN, JUST USUAL PAIN PER PATIENT. NO SIGNS OF SOA, HAS OXYGEN ON 3L NC.
--- NOTE | 2018-12-21 10:08 | NUR ---
GAVE REPORT TO OLGA AT [facility]. OLGA STATED TRANSPORTATION WILL BE HERE AT 1100.
--- NOTE | 2018-12-21 10:26 | NUR ---
Nutrition followup: pt seen per followup on [facility] unit, admit with hallucinations. Continues to eat well on carb controlled diet, 80-100% of meals. BG 63-303. Continues only with lantus insulin but would benefit from SSI. ST removed prior mechanically altered diet restriction. Pt with no additional choking episodes. Reports enjoys the food. Low risk.
--- NOTE | 2018-12-21 10:29 | NUR ---
Nutrition: pt with continued hyperglycemia. On carb controlled diet. BG 284-303. Receives glargine insulin but may benefit from addition of sliding scale to attempt better BG control.
[2018-12-21] MEDS ORDERED: SEROQUEL 50 MG50 MG PO (10:32)
[2018-12-21] MEDS ORDERED: SEROQUEL 100 M100 M1 PO ×2 (10:33→10:34)
[2018-12-21] MEDS ORDERED: SEROQUEL 25 MG25 M1 PO (10:36)
[2018-12-21] MEDS ORDERED: MIRALAX17 GM PO (10:38)
[2018-12-21] MEDS ORDERED: PREDNISONE 10 M10 MG PO (10:41)
[2018-12-21] MEDS ORDERED: LANTUS100 UNIT/M SUBQ (10:42)
--- NOTE | 2018-12-21 11:45 | NUR ---
PT LEAVING AT THIS TIME VIA W/C VAN WITH OXYGEN ON 3L NC.
--- NOTE | 2018-12-21 12:19 | NUR ---
Patient Name: MAXIM CONRAD Admission Date: 12/11/18 DISCHARGE PLAN: Pt will be discharge to [facility]. Care Assessment: Pt was assessed by Dr. Yang, and diagnosed with Major Neurocognitive Disorder. Level II Assessment: None Transportation: Pt was transported by the nursing facility. Special Instructions/Notes: Pt will need in a memory care unit. Pt will need a wander guard inplace to prevent elopement. Pt was medication was reguluated, and Dr. Yang added seroquel for agitation, and mood. DISCHARGE TO FACILITY: Memory Care unit Facility: [facility] Fax: Address: [address] [place] [address] Contact Name: Arleen Rico PCP: RAHEEM Primary doctor Psychiatrist: RAHEEM primary psychiatrist
== END 2018-12-21 11:45 | DRG 57 ==
LOC: ER 21:39 → SBH 23:17 → EROBS 23:17 → SBH 23:56
PROVIDERS: Nurse Practitioner; ADMIT Psychiatry & Neurology Psychiatry
DX: G30.9 Alzheimer's disease, unspecified (principal); J96.11 Chronic respiratory failure with hypoxia; R45.851 Suicidal ideations; F01.51 Vascular dementia, unspecified severity, with behavioral disturbance; Z68.41 Body mass index [BMI] 40.0-44.9, adult; F02.80 Dementia in other diseases classified elsewhere, unspecified severity, without behavioral disturbance, psychotic disturbance, mood disturbance, and anxiety; J44.9 Chronic obstructive pulmonary disease, unspecified; F32.9 Major depressive disorder, single episode, unspecified; E11.9 Type 2 diabetes mellitus without complications; E78.00 Pure hypercholesterolemia, unspecified; I10 Essential (primary) hypertension; G47.33 Obstructive sleep apnea (adult) (pediatric); E78.5 Hyperlipidemia, unspecified; G25.81 Restless legs syndrome; E66.01 Morbid (severe) obesity due to excess calories; I48.2 Chronic atrial fibrillation; I89.0 Lymphedema, not elsewhere classified; Z90.49 Acquired absence of other specified parts of digestive tract; Z90.710 Acquired absence of both cervix and uterus; Z88.6 Allergy status to analgesic agent; Z88.0 Allergy status to penicillin; Z88.8 Allergy status to other drugs, medicaments and biological substances; Z79.82 Long term (current) use of aspirin; Z79.899 Other long term (current) drug therapy
CPT/HCPCS: 10880